=== PATIENT | male | born 1960 | race Hispanic/Latino ===

== ENCOUNTER 2018-07-28 18:48 | Observation (INO) | payer OTHER ==
--- OUTSIDE RECORDS SUMMARY | 2018-07-28 18:49 | XMS REPORT | Clinical Summary ---
:1960 Author Organization [facility] Address [address] [place] [address] Care Team Providers Name Role Phone Elian Scott MD Primary Care Provider Unavailable Allergies No Known Allergies Current Medications Prescription Sig. Disp. Refills Start Date End Date Status clopidogrel (PLAVIX) 75 08/22/2016 Active mg tablet aspirin (ECOTRIN) 81 MG Take 81 mg by mouth Active enteric coated tablet daily. bromfenac (PROLENSA) Administer 1 drop to Active 0.07 % ophthalmic the right eye daily. solution Active Problems Problem Noted Date Pseudophakia 10/04/2016 Overview: 10/03/16 OD FLACS and ORA, CTK585 12.0 Last Assessment & Plan: 10/03/16 OD FLACS and ORA, UST912 12.0 s/p phaco/PCIOL . Doing great. Residual cell nearly resolved. Using Prolensa OD qd, D/C after finishing medication. History of retinal detachment 09/01/2016 Last Assessment & Plan: RD surgery in [place] when on work 08/05. Did SBP. Spontaneous. H/O myopia. Last saw retina december of this year. Combined form of senile cataract 09/01/2016 Last Assessment & Plan: Did well OD, early OS, follow. History of laser refractive surgery 09/01/2016 Overview: LASIK OU 1996, in [facility] by Dr. Randolph. Pre-existing astigmatism, had AK, but couldn't treat it all. Last Assessment & Plan: LASIK OU 1996, in [facility] by Dr. Randolph. Pre-existing astigmatism, had AK, but couldn't treat it all. Detached retina A-fib ([facility]) Encounters Date Type Specialty Care Team Description 09/20/2017 Telephone Ophthalmology Sherman Alves MD after 07/27/2017 Family History Medical History Relation Name Comments No Known Problems Brother No Known Problems Father No Known Problems Maternal Aunt No Known Problems Maternal Grandfather No Known Problems Maternal Grandmother No Known Problems Maternal Uncle No Known Problems Mother No Known Problems Paternal Aunt No Known Problems Paternal Grandfather No Known Problems Paternal Grandmother No Known Problems Paternal Uncle No Known Problems Sister Relation Name Status Comments Brother Father Maternal Aunt Maternal Grandfather Maternal Grandmother Maternal Uncle Mother Paternal Aunt Paternal Grandfather Paternal Grandmother Paternal Uncle Sister Social History Tobacco Use Types Packs/Day Years Used Date Former Smoker Smokeless Tobacco: Never Used Alcohol Use Drinks/Week oz/Week Comments Yes Sex Assigned at Date Recorded Not on file Last Filed Vital Signs Not on file Plan of Treatment Health Maintenance Due Date Last Done Comments COLON CANCER SCREENING 2008 SHINGRIX VACCINE (#1) 2008 INFLUENZA VACCINE 05/22/2018 Implants Implanted Type Area Header Up Device Expiration Model / Identifier Date Serial / Lot Lens Iol Techortensia Symfony Toric Erv 12.0d Cyl 3.75 - [id number] - [id number] Intraocular Right: DOLORES 07/25/2021 [id number] / Implanted: Qty: 1 on 10/03/2016 by Sherman Alves MD Lens Implant Eye [id number] / [id number] Results Not on fileafter 07/27/2017 Insurance Payer Benefit Plan / Group Subscriber ID Type Phone Address AETNA AETNA HMO,POS,EPO, MC/EC xxxxxxxxxx HMO [phone] [address]
[2018-07-28 20:08] LABS: Absolute Lymphocytes (CBC) 2.4 K/uL (0.7-4.9); Absolute Monocytes 0.7 K/uL (0.1-1.3); Absolute Neutrophil 6.1 K/uL (1.8-8.0); Basophils % 0.6 % (0-1.3); Eosinophils % 5.7 % (0-4.4); Hematocrit 47.6 % (39.6-49.0); Lymphocytes % 24.7 % (15.3-44.8); MCV 94.2 fL (80-100); MPV 8.2 fL (7.6-11.3); Monocytes % 7.3 % (3.3-12.3); RBC Red Blood Cell Count 5.05 M/uL (4.33-5.43)
[2018-07-28 20:27] LABS: Bilirubin Direct 0.1 mg/dL (0-0.2); Bilirubin Total 0.4 mg/dL (0.2-1.0); Potassium 3.8 mmol/L (3.5-5.1); Protein, Total 7.4 g/dL (6.4-8.2); Protime INR 1.42; Troponin (Emerg Dept Use Only) 0.03 ng/mL (0.0-0.045)
--- NOTE | 2018-07-28 20:28 | RAD REPORT ---
EXAM DESCRIPTION: RAD - Chest Single View - 07/28/2018 8:19 pm CLINICAL HISTORY: CHEST PAIN Chest pain. COMPARISON: No comparisons FINDINGS: Portable technique limits examination quality. The lungs are grossly clear. The heart is normal in size. No displaced fractures. IMPRESSION: No acute intrathoracic process suspected.
--- NOTE | 2018-07-28 22:28 | ER ---
Nurse's Notes [facility] Name: Johnny Brown Age: 57 yrs Sex: Male : 1960 Arrival Date: 07/28/2018 Time: 18:49 Bed 25 Private MD: Diagnosis: Chest pain, unspecified Presentation: 07/28 18:54 Presenting complaint: Patient states: Intermittent left sided chest pain that started hb this morning. Also c/o mild SOB and nausea. Hx afib. Transition of care: patient was not received from another setting of care. Onset of symptoms was July 28, 2018. Risk Assessment: Do you want to hurt yourself or someone else? Patient reports no desire to harm self or others. Care prior to arrival: None. 18:54 Method Of Arrival: Ambulatory hb 18:54 Acuity: ДМИТРИЙ 3 hb 19:00 Initial Sepsis Screen: Does the patient meet any 2 criteria? No. Patient's initial kr2 sepsis screen is negative. Does the patient have a suspected source of infection? No. Patient's initial sepsis screen is negative. Historical: - Allergies: 18:57 No Known Allergies; hb - Home Meds: 18:57 Xarelto 20 mg oral tab 1 tab once daily [Active]; hb - PMHx: 18:57 Atrial Fib; hb - PSHx: 18:57 None; hb - Immunization history:: Adult Immunizations up to date. - Social history:: Smoking status: Patient/guardian denies using tobacco. - Ebola Screening: : No symptoms or risks identified at this time. Screenin:00 Abuse screen: Denies threats or abuse. Denies injuries from another. Nutritional kr2 screening: No deficits noted. Tuberculosis screening: No symptoms or risk factors identified. Fall Risk None identified. Assessment: 19:00 General: Appears in no apparent distress. uncomfortable, well groomed, well developed, kr2 well nourished, Behavior is cooperative, appropriate for age, anxious. Pain: Complains of pain in anterior aspect of left upper chest and left breast Pain does not radiate. Pain currently is 8 out of 10 on a pain scale. Quality of pain is described as pressure, sharp, shooting, Pain began suddenly, 30 min ago. Is continuous, Alleviated by nothing. Neuro: Level of Consciousness is awake, alert, obeys commands, Oriented to person, place, time, situation. Cardiovascular: Heart tones S1 S2 Patient's skin is warm and dry. Rhythm is regular. Respiratory: Airway is patent Respiratory effort is even, unlabored, Respiratory pattern is regular, symmetrical. GI: Abdomen is round non-distended, Abd is soft and non tender X 4 quads. EENT: Oral mucosa is moist. Derm: Skin is intact, is healthy with good turgor, Skin is pink, warm \T\ dry. Musculoskeletal: Circulation, motion, and sensation intact. 20:05 Reassessment: Patient appears in no apparent distress at this time. Patient and/or kr2 family updated on plan of care and expected duration. Pain level reassessed. Patient is alert, oriented x 3, equal unlabored respirations, skin warm/dry/pink. Patient states symptoms have improved. 21:03 Reassessment: Patient appears in no apparent distress at this time. Patient and/or kr2 family updated on plan of care and expected duration. Pain level reassessed. Patient is alert, oriented x 3, equal unlabored respirations, skin warm/dry/pink. Patient states symptoms have improved. 22:20 Reassessment: Patient appears in no apparent distress at this time. Patient and/or kr2 family updated on plan of care and expected duration. Pain level reassessed. Patient is alert, oriented x 3, equal unlabored respirations, skin warm/dry/pink. Patient states symptoms have improved. 07/29 00:03 Reassessment: Patient appears in no apparent distress at this time. Patient and/or kr2 family updated on plan of care and expected duration. Pain level reassessed. Patient is alert, oriented x 3, equal unlabored respirations, skin warm/dry/pink. Patient states symptoms have improved. Vital Signs: 07/28 18:56 BP 126 / 103; Pulse 107; Resp 16; Pulse Ox 95% on R/A; Pain 8/10; hb 20:05 BP 114 / 74; Pulse 105; Resp 22; Pulse Ox 94% on R/A; kr2 21:02 BP 127 / 78; Pulse 97; Resp 19; Pulse Ox 95% on R/A; kr2 22:21 BP 126 / 80; Pulse 105; Resp 22; Pulse Ox 94% ; kr2 07/29 00:02 BP 105 / 70; Pulse 78; Resp 16; Pulse Ox 98% on R/A; kr2 ED Course: 07/28 18:49 Patient arrived in ED. as 18:55 Triage completed. hb 18:55 Inserted saline lock: 20 gauge in left antecubital area, using aseptic technique. Blood kr2 collected. Patient maintains SpO2 saturation greater than 95% on room air. 18:56 Cheryl Oglesby, RN is Primary Nurse. kr2 18:57 Arm band placed on right wrist. hb 19:01 EKG done, by ED staff, reviewed by Juan A Cosme MD. jp3 19:01 Bed in low position. Call light in reach. Side rails up X 1. wood room hand on. Pulse jp3 ox on. NIBP on. 19:16 Riki Palma MD is Attending Physician. tw4 19:56 Basic Metabolic Panel Sent. kr2 19:56 CBC with Diff Sent. kr2 19:56 LFT's Sent. kr2 19:56 Magnesium Sent. kr2 19:56 NT PRO-BNP Sent. kr2 19:56 PT-INR Sent. kr2 19:56 Troponin (emerg Dept Use Only) Sent. kr2 20:18 XRAY Chest (1 view) In Process Unspecified. EDNJ 22:28 Ray Espinoza MD is Hospitalizing Provider. tw4 10 00:45 No provider procedures requiring assistance completed. Patient admitted, IV remains in kr2 place. Administered Medications: No medications were administered Outcome: 07/28 22:28 Decision to Hospitalize by Provider. tw4 07/29 00:45 Admitted to Tele accompanied by nurse, via wheelchair, room 408, with chart, Report kr2 called to INDIGO Jacinto Condition: stable Instructed on the need for admit, Demonstrated understanding of instructions. 00:47 Patient left the ED. kr2 Signatures: Dispatcher [employer] EDMS Julia Branch as Yoko Lynn RN RN Cheryl Oglesby, INDIGO RN kr2 Riki Palma MD MD tw4 Roman Silverio jp3
--- NOTE | 2018-07-28 22:28 | EDPHYS ---
Physician Documentation [facility] Name: Johnny Brown Age: 57 yrs Sex: Male : 1960 Arrival Date: 07/28/2018 Time: 18:49 Bed 25 Private MD: ED Physician Riki Palma HPI: 07/28 20:24 This 57 yrs old Male presents to ER via Ambulatory with complaints of Chest tw4 Pain. 20:24 The patient or guardian reports chest pain that is located primarily in the anterior tw4 chest wall, left. Onset: today. The pain does not radiate. Associated signs and symptoms: The patient has no apparent associated signs or symptoms. The chest pain is described as dull. Duration: The patient or guardian reports a single episode. Modifying factors: The symptoms are alleviated by nothing. the symptoms are aggravated by nothing. Severity of pain: At its worst the pain was mild in the emergency department the pain has resolved. The patient has not experienced similar symptoms in the past. Historical: - Allergies: 18:57 No Known Allergies; hb - Home Meds: 18:57 Xarelto 20 mg oral tab 1 tab once daily [Active]; hb - PMHx: 18:57 Atrial Fib; hb - PSHx: 18:57 None; hb - Immunization history:: Adult Immunizations up to date. - Social history:: Smoking status: Patient/guardian denies using tobacco. - Ebola Screening: : No symptoms or risks identified at this time. ROS: 20:24 Constitutional: Negative for fever, chills, and weight loss, Respiratory: Negative for tw4 shortness of breath, cough, wheezing, and pleuritic chest pain, Abdomen/GI: Negative for abdominal pain, nausea, vomiting, diarrhea, and constipation. 20:24 MS/Extremity: Negative for injury and deformity, Skin: Negative for injury, rash, and discoloration, Neuro: Negative for headache, weakness, numbness, tingling, and seizure. 20:24 Cardiovascular: Positive for chest pain, Negative for edema, orthopnea, palpitations. Exam: 20:24 Constitutional: This is a well developed, well nourished patient who is awake, alert, tw4 and in no acute distress. Head/Face: Normocephalic, atraumatic. Chest/axilla: Normal chest wall appearance and motion. Nontender with no deformity. No lesions are appreciated. Cardiovascular: Regular rate and rhythm with a normal S1 and S2. No gallops, murmurs, or rubs. Normal PMI, no JVD. No pulse deficits. Respiratory: Lungs have equal breath sounds bilaterally, clear to auscultation and percussion. No rales, rhonchi or wheezes noted. No increased work of breathing, no retractions or nasal flaring. Abdomen/GI: Soft, non-tender, with normal bowel sounds. No distension or tympany. No guarding or rebound. No evidence of tenderness throughout. Back: No spinal tenderness. No costovertebral tenderness. Full range of motion. MS/ Extremity: Pulses equal, no cyanosis. Neurovascular intact. Full, normal range of motion. Neuro: Awake and alert, GCS 15, oriented to person, place, time, and situation. Cranial nerves II-XII grossly intact. Motor strength 5/5 in all extremities. Sensory grossly intact. Cerebellar exam normal. Normal gait. Vital Signs: 18:56 BP 126 / 103; Pulse 107; Resp 16; Pulse Ox 95% on R/A; Pain 8/10; hb 20:05 BP 114 / 74; Pulse 105; Resp 22; Pulse Ox 94% on R/A; kr2 21:02 BP 127 / 78; Pulse 97; Resp 19; Pulse Ox 95% on R/A; kr2 22:21 BP 126 / 80; Pulse 105; Resp 22; Pulse Ox 94% ; kr2 07/29 00:02 BP 105 / 70; Pulse 78; Resp 16; Pulse Ox 98% on R/A; kr2 MDM: 07/28 19:16 Patient medically screened. 07/28 19:49 Order name: Basic Metabolic Panel; Complete Time: 21:25 4 07/28 21:25 Interpretation: Normal except: CL 109; GFR 57; BUN 24. 07/28 19:49 Order name: CBC with Diff; Complete Time: 21:25 07/28 21:25 Interpretation: Normal except: EOSINOPHIL % 5.7. 07/28 19:49 Order name: LFT's; Complete Time: 21:25 tw4 07/28 21:26 Interpretation: Within normal limits. 07/28 19:49 Order name: Magnesium; Complete Time: 21:25 tw 07/28 21:26 Interpretation: Within normal limits: MG 2.0. tw4 07/28 19:49 Order name: NT PRO-BNP; Complete Time: 21:25 tw4 07/28 21:25 Interpretation: Within normal limits: NT PRO-BNP 238. tw4 07/28 19:49 Order name: PT-INR; Complete Time: 21:25 tw4 07/28 21:26 Interpretation: Normal except: PT 16.8. tw4 07/28 19:49 Order name: Troponin (emerg Dept Use Only); Complete Time: 21:25 tw4 07/28 21:26 Interpretation: TROPED 0.03. tw4 07/28 19:49 Order name: XRAY Chest (1 view); Complete Time: 21:25 tw4 07/28 19:49 Order name: EKG; Complete Time: 19:50 tw4 07/28 22:48 Order name: Echo with Doppler [facility] 07/28 22:48 Order name: Troponin I [facility] 07/28 22:48 Order name: Troponin I [facility] 07/28 22:48 Order name: Troponin I [facility] 07/28 22:48 Order name: Troponin I [facility] 07/28 19:49 Order name: Cardiac monitoring; Complete Time: 19:57 tw4 07/28 19:49 Order name: EKG - Nurse/Tech; Complete Time: 19:57 tw4 07/28 19:49 Order name: IV Saline Lock; Complete Time: 19:57 tw4 07/28 19:49 Order name: Labs collected and sent; Complete Time: 19:57 tw4 07/28 19:49 Order name: O2 Per Protocol; Complete Time: 19:57 tw4 07/28 19:49 Order name: O2 Sat Monitoring; Complete Time: 19:57 tw4 07/28 22:48 Order name: CONS Physician Consult [facility] 07/28 22:48 Order name: Heart Healthy [facility] 07/28 22:48 Order name: NPO [facility] EC:46 Rate is 103 beats/min. Rhythm is irregularly irregular. QRS [place] is Normal. ME interval tw4 is normal. QRS interval is normal. QT interval is normal. No Q waves. T waves are Normal. No ST changes noted. Clinical impression: Abnormal EKG without significant change and Atrial Fibrillation. Interpreted by me. Reviewed by me. Administered Medications: No medications were administered Disposition: 07/28/18 22:28 Hospitalization ordered by Ray Espinoza for Observation. Preliminary diagnosis is Chest pain, unspecified. - Bed requested for Telemetry/MedSurg (observation). - Status is Observation. kr2 - Condition is Stable. - Problem is new. - Symptoms have improved. UTI on Admission? No Signatures: Dispatcher [employer] EDHI Ebony Tavera Yoko Lynn, INDIGO RN Cheryl Oglesby RN RN kr2 Riki Palma MD MD tw4 Corrections: (The following items were deleted from the chart) 23: 22:28 Hospitalization Ordered by Ray Espinoza MD for Observation. Preliminary cc diagnosis is Chest pain, unspecified. Bed requested for Telemetry/MedSurg (observation). Status is Observation. Condition is Stable. Problem is new. Symptoms have improved. UTI on Admission? No. tw4 07/29 00:47 07/28 23:09 07/28/2018 22:28 Hospitalization Ordered by Ray Espinoza MD for kr2 Observation. Preliminary diagnosis is Chest pain, unspecified. Bed requested for Telemetry/MedSurg (observation). Status is Observation. Condition is Stable. Problem is new. Symptoms have improved. UTI on Admission? No. cc
[2018-07-28] MEDS ORDERED: ACETAMINOPHEN 500 MG TAB PO PRN (22:44)
--- NOTE | 2018-07-28 22:54 | P.HP ---
Certification for Inpatient Patient admitted to: Observation With expected LOS: <2 Midnights Practitioner: I am a practitioner with admitting privileges, knowledge of patient current condition, hospital course, and medical plan of care. Services: Services provided to patient in accordance with Admission requirements found in Title 42 Section 412.3 of the Code of Federal Regulations Patient History Date of Service: 07/28/18 Reason for admission: Chest pain History of Present Illness: Mr Brown is a history 7-year-old male with history of chronic atrial fibrillation, anticoagulation with Xarelto, came to ER complaining of chest pain. His symptoms started yesterday, he described like a dull tightness sensation in the left side of his chest. The pain intensity varies, but averages 7/10. The pain is associated with nausea and vomiting and also diaphoresis. He denied any shortness of breath or dizziness. EKG shows atrial fibrillation without ST-T abnormalities. Initial troponin I is negative. At the time of my encounter, the patient's chest pain has been resolved. Home medications list reviewed: Yes - Past Medical/Surgical History -: Chronic AFib -: Tobacco abuse Past Surgical History: Reviewed- Non-Contributory - Family History Family History: Reviewed- Non-Contributory - Social History Smoking Status: Light Tobacco smoker (1-9 cigarettes/day) Counseled patient to stop smoking for: less than 10 minutes Alcohol use: Yes CD- Drugs: No Caffeine use: Yes Place of Residence: Home Review of Systems 10-point ROS is otherwise unremarkable Physical Examination - Physical Exam General: Alert, In no apparent distress HEENT: Atraumatic, PERRLA, Mucous membr. moist/pink, EOMI, Sclerae nonicteric Neck: Supple, 2+ carotid pulse no bruit, No LAD, Without JVD or thyroid abnormality Respiratory: Clear to auscultation bilaterally, Normal air movement Cardiovascular: Regular rate/rhythm, Normal S1 S2 Gastrointestinal: Normal bowel sounds, No tenderness Musculoskeletal: No tenderness Integumentary: No rashes Neurological: Normal gait, Normal speech, Normal strength at 5/5 x4 extr, Normal tone, Normal affect Lymphatics: No axilla or inguinal lymphadenopathy - Studies Laboratory Data (last 24 hrs) 07/28/18 18:55: PT 16.8 H, INR 1.42 07/28/18 18:55: WBC 9.8, Hgb 16.2, Hct 47.6, Plt Count 280 10/07/18 18:55: Sodium 143, Potassium 3.8, BUN 24 H, Creatinine 1.30, Glucose 94 , Magnesium 2.0, Total Bilirubin 0.4, AST 28, ALT 37, Alkaline Phosphatase 68 Assessment and Plan - Problems (Diagnosis) (1) Chest pain Current Visit: Yes Status: Acute Qualifiers: Chest pain type: unspecified Qualified Code(s): R07.9 - Chest pain, unspecified (2) Chronic atrial fibrillation Current Visit: Yes Status: Acute (3) Tobacco abuse Current Visit: Yes Status: Acute - Plan Will admit the patient to the hospital due to chest pain in order to rule out acute coronary syndrome. Will order serial cardiac enzymes and EKG. Also an echocardiogram in a.m. consult Cardiology for evaluation recommendation. - Advance Directives Does patient have a Living Will: No Does patient have a Durable POA for Healthcare: No - Code Status/Comfort Care Code Status Assessed: Yes Code Status: Full Code
[2018-07-29 00:55] VITALS: O2SAT 98
[2018-07-29 01:13] VITALS: BMI 31.4
--- NOTE | 2018-07-29 07:28 | EKG ---
Test Date: 2018-07-28 Test Time: 18:56:59 Drawing In Machine Tender: MILTON MEASUREMENT RESULTS: Intervals: Rate: 103 GA: QRSD: 88 QT: 332 QTc: 434 Dubois: P: GA: QRS: 70 T: -9 INTERPRETIVE STATEMENTS: Atrial fibrillation with rapid ventricular response with premature ventricular or aberrantly conducted complexes Non specific T wave abnormality Abnormal ECG No previous ECG available for comparison Electronically Signed On 07-29-18 07:28:12 CDT by Eriberto Funk
[2018-07-29 08:08] LABS: Thyroid Stimulating Hormone 1.81 uIU/mL (0.360-3.740)
[2018-07-29] MEDS ORDERED: ENOXAPARIN 40 MG/0.4 ML SQ SCH (09:00)
[2018-07-29] MEDS ORDERED: RIVAROXABAN 20 MG TABLET PO SCH (09:00)
[2018-07-29] MEDS ORDERED: ASPIRIN EC 81 MG TAB PO SCH (09:00)
--- NOTE | 2018-07-29 10:44 | P.DS ---
Admission Date: 07/28/18 Discharge Date: 07/29/18 Primary Care Provider: Dr. Scott; Cardiology-Dr. Queen Disposition: ROUTINE DISCHARGE Discharge Condition: GOOD Reason for Admission: Chest pain Consultations: Cardiology-Dr. Funk Procedures: Echocardiogram: Ejection fraction 71% LEFT VENTRICULAR WALL MOTION: NORMAL. DOPPLER/COLOR FLOW: TRACE OF MITRAL AND TRICUSPID REGURGITATION. NORMAL RIGHT VENTRICULAR SYSTOLIC PRESSURE. COMMENTS: NORMAL LEFT VENTRICULAR EJECTION FRACTION. LEFT VENTRICULAR HYPERTROPHY. DILATED LEFT ATRIUM. TRACE OF MITRAL AND TRICUSPID REGURGITATION. ATRIAL FIBRILLATION 78 BEATS PER MINUTE. Cardiac stress test: No stress-induced ischemia noted. Medical problem list: Chest pain Chronic atrial fibrillation on chronic anti coagulation therapy Tobacco abuse GERD Hyperlipidemia Brief History of Present Illness: 57-year-old male with history of atrial fibrillation on chronic anti coagulation therapy. Patient presented with chest pain. Patient admitted for further evaluation. Hospital Course: Patient presented with chest pain. Patient was admitted for observation. Cardiac enzymes unremarkable. Patient seen by Cardiology. Cardiology recommends echocardiogram and stress test. Ejection fraction 71%. No stress- induced ischemia noted. No further intervention was required. Patient will continue with his current medications. Patient has atrial fibrillation on chronic anti coagulation therapy-Xarelto 20 mg daily. At discharge patient will continue with his medication Xarelto 20 mg daily. No need for rate control medication. Patient has hyperlipidemia. LDL 122. At discharge recommendation is to continue with Lipitor 40 mg 1 pill daily. Further adjustment can be done by his PCP. Patient with obesity, BMI 31.4. Lifestyle modification education will be provided. Patient likely has GERD. At discharge patient will continue with Protonix 40 mg 1 pill once daily. Tobacco cessation education will be provided at discharge. Vital Signs/Physical Exam: Temp Pulse Resp BP Pulse Ox 97.3 F 85 18 106/59 L 95 07/29/18 08:00 07/29/18 08:00 07/29/18 08:00 07/29/18 08:00 07/29/18 08:00 General: Alert, In no apparent distress, Oriented x3, Cooperative HEENT: Atraumatic, Mucous membr. moist/pink Neck: Supple Respiratory: Clear to auscultation bilaterally, Normal air movement Cardiovascular: Normal pulses, Regular rate/rhythm Gastrointestinal: Normal bowel sounds, Soft and benign, Non-distended, No tenderness, No masses, No rebound, No guarding Musculoskeletal: No erythema, No tenderness, No warmth Integumentary: No tenderness/swelling, No erythema, No warmth, No cyanosis Neurological: Normal speech, Normal strength at 5/5 x4 extr, Normal tone, Normal affect Laboratory Data at Discharge: WBC 9.8 K/uL (4.3-10.9) 07/28/18 18:55 Hgb 16.2 g/dL (13.6-17.9) 07/28/18 18:55 Hct 47.6 % (39.6-49.0) 07/28/18 18:55 Plt Count 280 K/uL (152-406) 07/28/18 18:55 PT 16.8 SECONDS (9.5-12.5) H 07/28/18 18:55 INR 1.42 07/28/18 18:55 Sodium 143 mmol/L (136-145) 07/28/18 18:55 Potassium 3.8 mmol/L (3.5-5.1) 07/28/18 18:55 BUN 24 mg/dL (7-18) H 07/28/18 18:55 Creatinine 1.30 mg/dL (0.55-1.3) 07/28/18 18:55 Glucose 94 mg/dL (74-106) 07/28/18 18:55 Magnesium 2.0 mg/dL (1.8-2.4) 07/28/18 18:55 Total Bilirubin 0.4 mg/dL (0.2-1.0) 07/28/18 18:55 AST 28 U/L (15-37) 07/28/18 18:55 ALT 37 U/L (12-78) 07/28/18 18:55 Alkaline Phosphatase 68 U/L (45-117) 07/28/18 18:55 Troponin I 0.04 ng/mL (0.0-0.045) 07/29/18 07:01 Triglycerides 86 mg/dL (<150) 07/29/18 07:01 Cholesterol 172 mg/dL (<200) 07/29/18 07:01 HDL Cholesterol 33 mg/dL (40-60) L 07/29/18 07:01 Cholesterol/HDL Ratio 5.21 07/29/18 07:01 Home Medications: Atorvastatin Calcium [Lipitor] 40 mg PO BEDTIME #30 tab 07/29/18 Pantoprazole [Protonix Tab*] 40 mg PO DAILYAC #30 tab 07/29/18 Rivaroxaban [Xarelto] 1 tab PO DAILY 07/29/18 New Medications: Atorvastatin Calcium [Lipitor] 40 mg PO BEDTIME #30 tab Pantoprazole [Protonix Tab*] 40 mg PO DAILYAC #30 tab Patient Discharge Instructions: 1. Patient will need to follow up with PCP in 1 week to follow up this hospitalization. 2. Patient presented with chest pain. Patient was admitted for observation. Cardiac enzymes unremarkable. Patient seen by Cardiology. Cardiology recommends echocardiogram and stress test. Ejection fraction 71%. No stress-induced ischemia noted. No further intervention was required. Patient will continue with his current medications. 3. Patient has atrial fibrillation on chronic anti coagulation therapy- Xarelto 20 mg daily. At discharge patient will continue with his medication Xarelto 20 mg daily. No need for rate control medication. 4. Patient has hyperlipidemia. LDL 122. At discharge recommendation is to continue with Lipitor 40 mg 1 pill daily. Further adjustment can be done by his PCP. 5. Patient with obesity, BMI 31.4. Lifestyle modification education will be provided. 6. Patient likely has GERD. At discharge patient will continue with Protonix 40 mg 1 pill once daily. 7. Tobacco cessation education will be provided at discharge. Diet: AHA Activity: Ad micah Followup: Allen Queen MD [ACTIVE - CAN ADMIT] - Elian Scott MD [Primary Care Provider] - Time spent managing pt's care (in minutes): 55
--- NOTE | 2018-07-29 10:52 | ECHO ---
HEIGHT: 5 ft 9 in WEIGHT: 212 lb 8 oz DATE OF STUDY: 07/29/[address]: Ray Castañeda MD 2-DIMENSIONAL: YES M.MODE: YES DOPPLER: YES COLOR FLOW: YES TDS: NO PORTABLE: NO DEFINITY: NO BUBBLE STUDY: NO DIAGNOSIS: CHEST PAIN CARDIAC HISTORY: CATHERIZATION: NO SURGERY: NO PROSTHETIC VALVE: NO PACEMAKER: NO MEASUREMENTS (cm) DIASTOLIC (NORMALS) SYSTOLIC (NORMALS) IVSd 1.3 (0.6-1.2) LA Diam 4.0 (1.9-4.0) LVEF 71% LVIDd 4.0 (3.5-5.7) LVIDs 2.4 (2.0-3.5) %FS 40% LVPWd 1.3 (0.6-1.2) Ao Diam 3.3 (2.0-3.7) 2 DIMENSIONAL ASSESSMENT: RIGHT ATRIUM: NORMAL LEFT ATRIUM: DILATED RIGHT VENTRICLE: NORMAL LEFT VENTRICLE: LEFT VENTRICULAR HYPERTROPHY TRICUSPID VALVE: NORMAL MITRAL VALVE: NORMAL PULMONIC VALVE: NORMAL AORTIC VALVE: NORMAL PERICARDIAL EFFUSION: NONE AORTIC ROOT: NORMAL LEFT VENTRICULAR WALL MOTION: NORMAL. DOPPLER/COLOR FLOW: TRACE OF MITRAL AND TRICUSPID REGURGITATION. NORMAL RIGHT VENTRICULAR SYSTOLIC PRESSURE. COMMENTS: NORMAL LEFT VENTRICULAR EJECTION FRACTION. LEFT VENTRICULAR HYPERTROPHY. DILATED LEFT ATRIUM. TRACE OF MITRAL AND TRICUSPID REGURGITATION. ATRIAL FIBRILLATION 78 BEATS PER MINUTE. TECHNOLOGIST: SUZY JENKINS
--- NOTE | 2018-07-29 15:02 | CON ---
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 Argelia viera takes aspirin, Xarelto. He came to the hospital with chest pain. He tends to get chest pain inter mittently, definitely not with exertion. He exerts himself very hard, very often the machine tells argelia bates to stop exercising because his heart rate was up so much. He is in chronic AFib and is not on any medicine that actually slows the heart rate. His only home medication is rivaroxaban. He has had a normal nuclear stress test about a year ago. Social History: He does not use tobacco. Alcohol use minimal. No illegal drugs. No history of yudith cardial infarction, stroke, vascular disease. Physical Examination: General: He appears to be his stated age. Vital Signs: He is 5 feet 9 inches, 212 pounds. Body mass index is elevated; however, he has mostly a heavy musculature chest and arms. He does not have centripetal obesity. Heart rate 85, blood pre ssure 106/59, O2 saturation 95%, temperature 97.3. HEENT: Normal. Lungs: Clear. Heart: Irregular to irregular. Abdomen: Soft. Extremities: Normal. Lungs: Clear. Cardiac: Normal, except for being irregular. Laboratory Data: Reveals a normal hemoglobin and hematocrit. One of his troponins is 0.05, the othe r is 0.04. I would recommend we do a non-nuclear stress test to see what we learn from that. If the re is a lot of ST depression, we will recommend to do a cardiac cath tomorrow. Thank you very much for your kind referral of Mr. Brown. I will follow him with you. MONE Voice ID: [id number] Report ID: [id number]
[2018-07-29 16:07] VITALS: TEMP 97.4
[2018-07-29 18:33] VITALS: BP 121/71
[2018-07-29] MEDS ORDERED: ATORVASTATIN 40 MG TAB PO SCH (21:00)
[2018-07-30] MEDS ORDERED: PANTOPRAZOLE 40MG TABLET PO SCH (06:30)
--- NOTE | 2018-07-30 07:42 | TREADMILL ---
70% H.R.: 113 85% H.R.: 137 90% H.R.: 145 100% H.R.: 161 DX: CHEST PAIN Date of Study: 07/29/2018 Ht: 5 9 Wt: 212 lb 8 oz Consulting Physician: GIL MEDICATIONS: TYLENOL, ASPIRIN, LIPITOR, PROTONIX, XARELTO HISTORY: 57 YEAR OLD MALE WITH COMPLIANTS OF CHEST PAIN PHYSICIAL EXAMINATION: RESTING B.P.: 116/95 RESTING H.R.: 97 RESTING EKG: ATRIAL FIBRILLATION, FLUTTER PROTOCOL: FRANCISCO JAVIER ROUTINE EXERCISE TIME: 5:00 MAXIMUM HEART RATE: % OF PREDICTED B.P. AT PEAK STRESS: 121/111 H.R. AT 1 MINUTE POST EXERCISE: 155 IMPRESSION: STRESS TEST STOPPED DUE TO FATIGUE PER PROTOCOL. UNABLE TO DETERMINE HEART RATE DUE TO ARRHYTHMIA. NO SUPRAVENTRICULAR TACHYCARDIA. NO VENTRICULAR TACHYCARDIA. FREQUENT PREMATURE VENTRICULAR COMPLEXES THROUGHOUT TEST. NO ST DEPRESSION WITH STRESS.
== END 2018-07-29 18:48 | disposition home or self-care (01) ==
LOC: ER 18:48 → ERHOLD 22:45 → 4TH 07-29 00:30
PROVIDERS: ADMIT Internal Medicine; ATTEND Internal Medicine
DX: R07.9 Chest pain, unspecified (principal); I48.2 Chronic atrial fibrillation; F17.210 Nicotine dependence, cigarettes, uncomplicated; K21.9 Gastro-esophageal reflux disease without esophagitis; E78.5 Hyperlipidemia, unspecified; Z79.01 Long term (current) use of anticoagulants; E66.9 Obesity, unspecified; Z68.31 Body mass index [BMI] 31.0-31.9, adult
CPT/HCPCS: 36415; 71045; 80048; 80061; 80076; 83735; 83880; 84439; 84443; 84484; 85025; 85610; 93005; 93017; 93306; 99285; G0378

== ENCOUNTER 2018-08-29 06:25 | Day surgery (SDC) | payer OTHER ==
[2018-08-27 14:46] LABS: Potassium 3.8 mmol/L (3.5-5.1)
[2018-08-27 14:53] LABS: Absolute Lymphocytes (CBC) 1.6 K/uL (0.7-4.9); Absolute Monocytes 0.4 K/uL (0.1-1.3); Basophils % 0.6 % (0-1.3); Lymphocytes % 25.1 % (15.3-44.8); MCV 92.3 fL (80-100); MPV 8.1 fL (7.6-11.3); Monocytes % 6.3 % (3.3-12.3); RBC Red Blood Cell Count 4.98 M/uL (4.33-5.43)
[2018-08-27 14:54] LABS: Protime INR 1.01
--- OUTSIDE RECORDS SUMMARY | 2018-08-29 06:28 | XMS REPORT | Clinical Summary ---
:1960 Author Organization [facility] Address [address] [place] [address] Care Team Providers Name Role Phone Elian [...] 10/04/2016 Overview: 10/03/16 OD FLACS and ORA, [id number] 12.0 Last Assessment & Plan: 10/03/16 OD FLACS and ORA, [id number] 12.0 s/p phaco/PCIOL . Doing great. Residual cell nearly resolved. Using Prolensa OD qd, D/C after finishing medication. History of retinal detachment 09/01/2016 Last Assessment & Plan: RD surgery in [place] when on work 08/05. Did SBP. Spontaneous. H/O myopia. Last saw retina december of this year. Combined form of senile cataract 09/01/2016 Last Assessment & Plan: Did well OD, early OS, follow. History of laser refractive surgery 09/01/2016 Overview: LASIK OU 1996, in [facility] by Dr. Randolph. Pre-existing astigmatism, had AK, but couldn't treat it all. Last Assessment & Plan: LASIK OU 1996, in [facility] by Dr. Randolph. Pre-existing astigmatism, had AK, but couldn't treat it all. Detached retina A-fib ([facility]) Encounters Date Type Specialty Care Team Description 09/20/2017 Telephone Ophthalmology Sherman Alves MD after 08/28/2017 Family History Medical History Relation Name Comments [...] INFLUENZA VACCINE 05/22/2018 Implants Implanted Type Area Artificial Limb Maker Device Expiration Model / Identifier Date Serial / Lot Lens Iol Techortensia Symfony Toric Erv 12.0d Cyl 3.75 - [id number] - [id number] Intraocular Right: DOLORES 07/25/2021 [id number] / Implanted: Qty: 1 on 10/03/2016 by Sherman Alves MD Lens Implant Eye [id number] / [id number] Results Not on fileafter 08/28/2017 Insurance Payer Benefit Plan / Group Subscriber ID Type Phone Address AETNA AETNA HMO,POS,EPO, MC/EC xxxxxxxxxx HMO [phone] [address]
[2018-08-29] MEDS ORDERED: HEPA 1000U/500MLS 1,000 UNIT/500 ML BAG IV ONE (07:00)
[2018-08-29] MEDS ORDERED: MIDAZOLAM HCL 2 MG/2 ML INJ ONE (07:01)
[2018-08-29] MEDS ORDERED: FENTANYL CITR 100 MCG/2 ML ONE (07:01)
[2018-08-29] MEDS ORDERED: LIDOCAINE 1% MPF 30 ML VIAL ONE (07:01)
[2018-08-29] MEDS ORDERED: ATROPINE SULF 1 MG/10 ML SYR IV ONE (07:02)
[2018-08-29] MEDS ORDERED: NA CHLORIDE 0.9% 0 ML ONE (07:02)
[2018-08-29] MEDS ORDERED: NA CHLORIDE 0.9% 500 ML ONE (07:17)
[2018-08-29 09:48] VITALS: BP 108/77; TEMP 98.5
[2018-08-29 09:51] VITALS: O2SAT 98
--- NOTE | 2018-08-29 18:18 | OP ---
Surgeon: Allen Queen MD Evp Operations: Claudia Leach. The patient admitted to the labor standards director as an outpatient for left heart catheterization. Procedures: Left heart catheterization, selective coronary arteriogram. Indication: Chest pain, atrial fibrillation, and positive stress test. Procedure In Detail: The patient was prepped and draped in the routine sterile fashion. Given 2 mg of Versed for IV sedation. A common femoral artery access obtained with a 6-Greek sheath. Angiogra phy there was normal. Angio-Seal was used to close the case. Selective coronary angiography was don e with Kathie catheter left and right respectively. He was very right dominant, very large RCA, mod erate plaquing in the RCA. The left system showed small vessels for his age, but no focal stenosis. He was noted to have a small plaque in the proximal OM. LV-gram was not done. The patient had an e jection fraction of 71% by echocardiography. Procedure was tolerated well. There were no complicati ons. Blood Loss: 5 cc. Total Conscious Sedation: 30 minutes. Plan: Plan is to continue medical therapy as is. Resume Xarelto tomorrow. He will be at bedrest fo r 2 hours and go home and see me in the office in 2 weeks. CANDICE/JEFF Voice ID: [id number] Report ID: [id number]
== END 2018-08-29 09:51 | disposition home or self-care (01) ==
LOC: CCL 06:25
PROC: B201YZZ Plain Radiography of Multiple Coronary Arteries using Other Contrast (ICD-10-PCS; principal; 2018-08-29)
DX: I25.110 Atherosclerotic heart disease of native coronary artery with unstable angina pectoris (principal); I48.2 Chronic atrial fibrillation; Z79.01 Long term (current) use of anticoagulants
CPT/HCPCS: 36415; 80048; 85025; 85610; 85730; 93454; C1760; C1893; J0583; J2250; J3010

== ENCOUNTER 2018-10-11 17:33 | Emergency (ER) | payer OTHER ==
[2018-10-11] MEDS ORDERED: LIDOCAINE 2% MPF 5 ML VIAL ONE (17:59)
[2018-10-11] MEDS ORDERED: TETANUS & DIPHTHERIA TOX,ADULT 0.5 ML VIAL ONE (18:03)
--- NOTE | 2018-10-11 18:40 | RAD REPORT ---
EXAM DESCRIPTION: RAD - Hand Right 3 View - 10/11/2018 6:22 pm CLINICAL HISTORY: laceration right index finger COMPARISON: No comparisons FINDINGS: Comminuted fracture is seen involving the distal phalanx of the right second digit with de bris present. Advanced arthritic changes involve the third finger PIP joint.
--- OUTSIDE RECORDS SUMMARY | 2018-10-11 19:07 | XMS REPORT | Clinical Summary ---
:1960 Author Organization [facility] Address [address] [place] [address] Care Team Providers Name Role Phone Elian Scott MD Primary Care Provider Unavailable Allergies No Known Allergies Medications Medication Sig Dispensed Refills Start Date End Date Status clopidogrel (PLAVIX) 0 08/22/2016 Active 75 mg tablet aspirin (ECOTRIN) 81 Take 81 mg by mouth 0 Active MG enteric coated daily. tablet bromfenac (PROLENSA) Administer 1 drop 0 Active 0.07 % ophthalmic to the right eye solution daily. Active Problems Problem Noted Date Pseudophakia 10/04/2016 Overview: 10/03/16 OD FLACS and ORA, [id number] 12.0 Last Assessment & Plan: 10/03/16 OD FLACS and ORA, [id number] 12.0 s/p phaco/PCIOL . Doing great. Residual cell nearly resolved. Using Prolensa OD qd, D/C after finishing medication. History of retinal detachment 09/01/2016 Last Assessment & Plan: RD surgery in [place] when on work 08/05. Did SBP. Spontaneous. H/O myopia. Last saw retina december of this year. Combined form of senile cataract 09/01/2016 Last Assessment & Plan: Did well OD, early OS, follow. History of laser refractive surgery 09/01/2016 Overview: LASIK OU 1996, in [facility] by Dr. Randolph. Pre-existing astigmatism, had AK, but couldn't treat it all. Last Assessment & Plan: LASIK OU 1996, in [place] by Dr. Randolph. Pre-existing astigmatism, had AK, but couldn't treat it all. Detached retina A-fib Family History Medical History Relation Name Comments [...] Assigned at Date Recorded Not on file Job Start Date Occupation Industry Not on file Not on file Not on file Travel History Travel Start Travel End No recent travel history available. Last Filed Vital Signs Not on file Plan of Treatment Health Maintenance Due Date Last Done Comments COLON CANCER SCREENING 2008 SHINGLES VACCINES (1 of 2) 2008 INFLUENZA VACCINE 05/22/2018 Implants Implanted Type Area Architect Device Shelf Model / Identifier Expiration Serial / Lot Date Lens Iol Tecnis Symfony Toric Erv 12.0d Cyl 3.75 - [id number] - [id number] Intraocular Right: DOLORES 07/25/2021 [id number] / Implanted: Qty: 1 on 10/03/2016 by Sherman Alves MD Lens Implant Eye [id number] / [id number] Results Not on fileafter 10/10/2017 Insurance Payer Benefit Plan / Group Subscriber ID Type Phone Address AETNA AETNA HMO,POS,EPO, MC/EC xxxxxxxxxx HMO ([employer]) [place] [address] Advance Directives Patient has advance care planning documents on file. For more information, please contact:Malik Hernándeznin [place] [address]
[2018-10-11] MEDS ORDERED: CEFAZOLIN SODIUM 1 GM/VIAL ONE (19:37)
[2018-10-11] MEDS ORDERED: WATER FOR INJ,STERILE 10 ML ONE (19:43)
--- NOTE | 2018-10-11 20:04 | EDPHYS ---
Physician Documentation [facility] Name: Johnny Brown Age: 57 yrs Sex: Male : 1960 Arrival Date: 10/11/2018 Time: 17:33 Bed 8 Private MD: Elian Scott E ED Physician Brandon Britt HPI: 10/11 17:58 This 57 yrs old Male presents to ER via Ambulatory with complaints of cp Laceration To Hand. 17:58 The patient has a laceration occurred at home, and due to use by tablesaw. The cp laceration(s) is(are) located on the distal aspect right index finger. Onset: The symptoms/episode began/occurred just prior to arrival. Associated signs and symptoms: Pertinent positives: deformity, decreased sensation distally, Pertinent negatives: heavy bleeding. Historical: - Allergies: 17:39 No Known Allergies; la1 - Home Meds: 17:39 Xarelto 20 mg Oral tab 1 tab once daily [Active]; la1 - PMHx: 17:39 Atrial Fib; la1 - Immunization history:: Adult Immunizations up to date. - Social history:: Smoking status: Patient/guardian denies using tobacco. - Ebola Screening: : No symptoms or risks identified at this time. ROS: 18:05 Constitutional: Negative for body aches, chills, fever, poor PO intake. cp 18:05 Cardiovascular: Negative for chest pain. cp 18:05 Respiratory: Negative for cough, shortness of breath, wheezing. 18:05 Abdomen/GI: Negative for abdominal pain, nausea, vomiting, and diarrhea. 18:05 MS/extremity: Positive for injury or acute deformity, laceration, pain, paresthesias, of the distal phalanx right index finger. 18:05 All other systems are negative. Exam: 18:15 Constitutional: The patient appears in no acute distress, alert, awake, cp non-diaphoretic, non-toxic, well developed, well nourished. 18:15 Head/Face: Normocephalic, atraumatic. cp 18:15 Eyes: Periorbital structures: appear normal, Conjunctiva: normal, no exudate, no injection, Lids and lashes: appear normal, bilaterally. 18:15 ENT: External ear(s): are unremarkable, Nose: is normal, Mouth: Lips: moist, Oral mucosa: moist. 18:15 Chest/axilla: Inspection: normal. 18:15 Cardiovascular: Rate: tachycardic. 18:15 Respiratory: the patient does not display signs of respiratory distress, Respirations: normal, no use of accessory muscles, no retractions, no splinting, no tachypnea. 18:15 Abdomen/GI: Exam negative for discomfort, distension, guarding, Inspection: abdomen appears normal. 18:15 Musculoskeletal/extremity: Extremities: grossly normal except: noted in the distal phalanx right index finger: decreased ROM, deformity, laceration, Perfusion: the extremity is normally perfused throughout, decreased sensation, Nails: partial avulsion, of the right index fingernail. Vital Signs: 17:40 BP 134 / 88; Pulse 105; Resp 18; Temp 97.3; Pulse Ox 98% on R/A; Weight 92.99 kg; la1 Height 5 ft. 9 in. (175.26 cm); 17:40 Body Mass Index 30.27 (92.99 kg, 175.26 cm) la1 Laceration: 19:46 Wound Repair of 5.5cm ( 2.2in ) subcutaneous laceration to distal phalanx right index cp finger. Irregularly shaped.. Distal neuro/vascular/tendon intact. Anesthesia: Digital block administered with 7 mls of Lido/Marcaine. Wound prep: Extensive cleansing by me, Wound irrigation by me, Wound margin revised minimally, Copious irrigation. Skin closed with 10 4-0 Prolene using interrupted sutures and sterile technique. Dressed with Bacitracin, tube gauze, xeroform and finger splint. Patient tolerated well. MDM: 17:49 Patient medically screened. cp 19:00 Physician consultation: Jesu Vaca MD was called at 18:55, was contacted at 18:55, cp regarding consult, patient's condition, outpatient follow-up, next week, and will see patient in office, next week. 20:02 Data reviewed: vital signs, nurses notes, radiologic studies, plain films. cp 20:02 Differential diagnosis: superficial laceration, tendon injury, open fracture, cp amputation. Test interpretation: by ED physician or midlevel provider: plain radiologic studies. Counseling: I had a detailed discussion with the patient and/or guardian regarding: the historical points, exam findings, and any diagnostic results supporting the discharge/admit diagnosis, radiology results, the need for outpatient follow up, a hand specialist, to return to the emergency department if symptoms worsen or persist or if there are any questions or concerns that arise at home. Special discussion: I discussed in detail with the patient the higher chance of wound infection based on his presenting history. ED course: VSS. Wound irrigated extensively by myself and closed as noted. Patient instructed on need for f/u 10-16-2018, in clinic with DR Vaca for wound reevaluation. 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 Exp: [id number] 11/09/2020. Lot #: [id number]. } Route: IM; Site: left deltoid; 18:42 Follow up: Response: No adverse reaction sv 19:37 Drug: Lidocaine (1 %) 5 ml Volume: 5 ml; Route: Infiltration; tl2 19:37 Drug: Marcaine (0.5 %) 5 ml Volume: 10 ml; Route: Infiltration; tl2 20:00 Drug: Ancef 1 grams Route: IM; Site: left gluteus; tl1 20:33 Follow up: Response: No adverse reaction tl1 Disposition: 21:00 Chart complete. cp Disposition: 10/11/18 20:03 Discharged to Home. Impression: Open comminuted fracture distal phalanx right index finger. - Condition is Stable. - Discharge Instructions: Finger Fracture. - Prescriptions for Keflex 500 mg Oral Capsule - take 1 capsule by ORAL route every 6 hours for 10 days; 40 capsule. Tylenol- Codeine #3 300-30 mg Oral Tablet - take 2 tablets by ORAL route every 6 hours As needed; 20 tablet. - Medication Reconciliation Form, Thank You Letter, Antibiotic Education, Prescription Opioid Use form. - Follow up: Jesu Vaca MD; When: 10/16/2018; Reason: Wound Recheck. - Problem is new. - Symptoms have improved. Addendum: 10/20/2018 06:59 Co-signature as Attending Physician, Brandon Britt MD. r n Signatures: Dispatcher [employer] EDMS Brandon Britt MD MD rn Attema, Lee, RN RN la1 Shannon Munoz RN RN tl1 Natanael Hill PA PA cp Jennifer Pizarro RN RN tl2 Armani Jernigan RN RN jl7 Marian Green RN sv Corrections: (The following items were deleted from the chart) 10/11 20:42 20:03 10/11/2018 20:03 Discharged to Home. Impression: Open comminuted fracture distal tl2 phalanx right index finger. Condition is Stable. Forms are Medication Reconciliation Form, Thank You Letter, Antibiotic Education, Prescription Opioid Use. Follow up: Jesu Vaca; When: 10/16/2018; Reason: Wound Recheck. Problem is new. Symptoms have improved. cp
--- NOTE | 2018-10-11 20:04 | ER ---
Nurse's Notes [facility] Name: Johnny Brown Age: 57 yrs Sex: Male : 1960 Arrival Date: 10/11/2018 Time: 17:33 Bed 8 Private MD: Elian Scott E Diagnosis: Open comminuted fracture distal phalanx right index finger Presentation: 10/11 17:38 Presenting complaint: Patient states: I cut my right index finger with a table saw and la1 I am on xareto, dressing present in triage without significant uncontrolled hemorrhage. Transition of care: patient was not received from another setting of care. Complicating Factors: There are no complicating factors for this patient. Onset of symptoms was October 11, 2018. Risk Assessment: Do you want to hurt yourself or someone else? Patient reports no desire to harm self or others. Initial Sepsis Screen: Does the patient meet any 2 criteria? No. Patient's initial sepsis screen is negative. Does the patient have a suspected source of infection? No. Patient's initial sepsis screen is negative. Care prior to arrival: None. 17:38 Method Of Arrival: Ambulatory la1 17:38 Acuity: ДМИТРИЙ 3 la1 Historical: - Allergies: 17:39 No Known Allergies; la1 - Home Meds: 17:39 Xarelto 20 mg Oral tab 1 tab once daily [Active]; la1 - PMHx: 17:39 Atrial Fib; la1 - Immunization history:: Adult Immunizations up to date. - Social history:: Smoking status: Patient/guardian denies using tobacco. - Ebola Screening: : No symptoms or risks identified at this time. Screenin:01 Abuse screen: Denies threats or abuse. Denies injuries from another. Nutritional jl7 screening: No deficits noted. Tuberculosis screening: No symptoms or risk factors identified. Fall Risk None identified. Assessment: 18:01 General: Appears in no apparent distress. uncomfortable, Behavior is calm, cooperative, jl7 appropriate for age. Pain: Denies pain. Neuro: Level of Consciousness is awake, alert, obeys commands, Oriented to person, place, time, situation. Cardiovascular: Patient's skin is warm and dry. Respiratory: Airway is patent Respiratory effort is even, unlabored, Respiratory pattern is regular, symmetrical. Derm: Skin is pink, warm \T\ dry. Musculoskeletal: Range of motion: intact in all extremities. Injury Description: Laceration sustained to palmar aspect of distal phalanx of right index finger and palmar aspect of middle phalanx of right index finger is contaminated, 2.6 to 7.5 cm long, was sustained less than 30 minutes ago. is bleeding moderately. 20:00 Reassessment: Patient appears in no apparent distress at this time. Patient and/or tl2 family updated on plan of care and expected duration. Pain level reassessed. Patient is alert, oriented x 3, equal unlabored respirations, skin warm/dry/pink. PA at bedside suturing. 20:42 Reassessment: Patient appears in no apparent distress at this time. Patient and/or tl2 family updated on plan of care and expected duration. Pain level reassessed. Patient is alert, oriented x 3, equal unlabored respirations, skin warm/dry/pink. Pt and family verbalized understanding of discharge instructions, need for follow up and prescription usage and wound care. Vital Signs: 17:40 BP 134 / 88; Pulse 105; Resp 18; Temp 97.3; Pulse Ox 98% on R/A; Weight 92.99 kg; la1 Height 5 ft. 9 in. (175.26 cm); 17:40 Body Mass Index 30.27 (92.99 kg, 175.26 cm) la1 ED Course: 17:33 Patient arrived in ED. rg4 17:33 Elian Scott MD is Private Physician. rg4 17:39 Triage completed. la1 17:40 Arm band placed on right wrist. la1 17:41 Armani Jernigan RN is Primary Nurse. jl7 17:48 Natanael Hill PA is PHCP. cp 17:49 Brandon Britt MD is Attending Physician. cp 18:01 Patient has correct armband on for positive identification. Bed in low position. Call jl7 light in reach. Side rails up X 1. 18:23 XRAY Hand RIGHT 3 View In Process Unspecified. EDMS 20:00 Assist provider with laceration repair on palmar aspect of middle phalanx of right tl2 index finger that was between 2.6 to 7.5 cm using sutures. Set up tray. Performed by Natanael CRAWFORD Dressed with Xeroform, Patient tolerated well. 20:02 Jesu Vaca MD is Referral Physician. cp 20:39 Patient did not have IV access during this emergency room visit. tl2 Administered Medications: 18:04 Drug: Tetanus-Diphtheria Toxoid Adult 0.5 ml {Input Output Clerk: ngmoco. Exp: jl7 11/09/2020. Lot #: [id number]. } Route: IM; Site: left deltoid; 18:42 Follow up: Response: No adverse reaction sv 19:37 Drug: Lidocaine (1 %) 5 ml Volume: 5 ml; Route: Infiltration; tl2 19:37 Drug: Marcaine (0.5 %) 5 ml Volume: 10 ml; Route: Infiltration; tl2 20:00 Drug: Ancef 1 grams Route: IM; Site: left gluteus; tl1 20:33 Follow up: Response: No adverse reaction tl1 Outcome: 20:03 Discharge ordered by . cp 20:42 Discharged to home ambulatory, with family. tl2 20:42 Condition: stable 20:42 Discharge instructions given to patient, family, Instructed on discharge instructions, follow up and referral plans. medication usage, wound care, Demonstrated understanding of instructions, follow-up care, medications, wound care, Prescriptions given X 2. 20:42 Patient left the ED. tl2 Signatures: Dispatcher [employer] EDMS Marian Green RN Nehemiah Fontana RN RN la1 Shannon Munoz RN RN tl1 Natanael Hill PA PA cp Jennifer Pizarro RN RN tl2 Aleshia Reid rg4 Armani Jernigan RN RN jl7
[2018-10-11 20:48] VITALS: BP 134/88; TEMP 97.3; O2SAT 98
== END 2018-10-11 20:42 | disposition home or self-care (01) ==
LOC: ER 17:33
PROC: 0JQJ0ZZ Repair Right Hand Subcutaneous Tissue and Fascia, Open Approach (ICD-10-PCS; principal; 2018-10-11)
DX: S62.630B Displaced fracture of distal phalanx of right index finger, initial encounter for open fracture (principal); W31.2XXA Contact with powered woodworking and forming machines, initial encounter; Y93.89 Activity, other specified; Y92.009 Unspecified place in unspecified non-institutional (private) residence as the place of occurrence of the external cause; Z23 Encounter for immunization; Z79.01 Long term (current) use of anticoagulants; I48.91 Unspecified atrial fibrillation
CPT/HCPCS: 90714; 96372; 99284; J0690